=== PATIENT | female | born 1975 | race African-American/Black ===

== ENCOUNTER 2018-04-08 19:33 | Emergency (ER) | payer BC ==
[~2018-04-08] VITALS: Ht 160 cm; Wt 59.0 kg
[~2018-04-08 19:33] MED LIST: EPINEPHRINE 0.1MG/ML (1:10,000) 10ML SYR ONE
[2018-04-08 19:36] VITALS: BP 0/0
== END 2018-04-08 19:46 | disposition expired ==
LOC: ER 19:33
DX: I46.9 Cardiac arrest, cause unspecified (principal); C90.00 Multiple myeloma not having achieved remission; Z92.21 Personal history of antineoplastic chemotherapy
CPT/HCPCS: 99285; J3490